=== PATIENT | female | born 1960 | race Asian ===

== ENCOUNTER 2022-08-07 13:12 | Inpatient (IN) | payer MEDICARE ==
[~2022-08-07] VITALS: Ht 157.5 cm; Wt 152.6 kg
[2022-08-07 14:43] LABS: Albumin 3.3 g/dL (3.4-5.0); Calcium 8.7 mg/dL (8.5-10.1); Potassium 4.9 mmol/L (3.5-5.1)
[2022-08-07 14:46] LABS: Bilirubin, Total 0.3 mg/dL (0.2-1.0); Lactic Acid w/Reflex 2.3 mmol/L (0.4-2.0); Total Protein 7.3 g/dL (6.4-8.2)
[2022-08-07 14:49] LABS: Basophils # (auto) 0 10 ^3/uL (0-0.2); Basophils % (auto) 0.6 % (0.0-2.0); Eosinophils # (auto) 0 10 ^3/uL (0-0.8); Eosinophils % (auto) 0.5 % (0.0-7.0); Hematocrit 36.1 % (36.0-46.0); Hemoglobin 11.8 g/dL (12.2-16.2); Lymphocytes # (auto) 1.8 10 ^3/uL (0.4-5.4); Lymphocytes % (auto) 22.6 % (10.0-50.0); Mean Corpuscular Hgb Conc. 32.5 g/dL (32.0-36.0); Mean Corpuscular Volume 89.1 fL (80.0-100.0); Monocytes # (auto) 0.3 10 ^3/uL (0-1.3); Monocytes % (auto) 3.9 % (0.0-12.0); Neutrophils # (auto) 5.8 10 ^3/uL (1.6-8.6); Neutrophils % (auto) 72.4 % (37.0-80.0); Red Blood Cells 4.05 10^6/uL (4.0-5.20); Red Cell Distribution Width 13.2 % (11.8-14.3)
[2022-08-07 15:07] LABS: BUN/Creatinine Ratio 21.2
[2022-08-07] MEDS ORDERED: InsuLIN REG 1unit/0.01ml Soln (100units/ml) IV ONE (17:00)
[2022-08-07] MEDS ORDERED: SODIUM CHLORIDE 0.9% 1,000 ML IV ONE (17:00)
[2022-08-07] MEDS ORDERED: DEXTROSE (50%) 50ML SYRG IV PRN (22:45)
[2022-08-07] MEDS ORDERED: ACETAMINOPHEN 325 MG TAB PO PRN (22:45)
[2022-08-07] MEDS ORDERED: HYDROcodone-ACET 5/325MG TAB PO PRN (22:45)
[2022-08-07] MEDS ORDERED: MORPHINE SULFATE INJ 2 MG/ml SYRG IV PRN ×2 (22:45→23:45)
[2022-08-07] MEDS: SODIUM CHLORIDE 0.9% 1,000 ML IV SCH (22:45)
[2022-08-07] MEDS ORDERED: ONDANSETRON HCL 4 MG/2 ML VIAL IV PRN (22:45)
[2022-08-07] MEDS ORDERED: ALBUMIN 25% 100 ML IV ONE (22:45)
[2022-08-07] MEDS ORDERED: NITROGLYCERIN 0.4 MG SL TAB SL PRN (23:45)
[2022-08-08] VITALS (7 sets, daily range): BP systolic 113–165; BP diastolic 67–87
[2022-08-08] MEDS: LACTULOSE 20Gm/30ML SOLN PO SCH ×4 (04:31→17:46)
[2022-08-08] MEDS: InsuLIN REG 1unit/0.01ml Soln (100units/ml) SC SCH ×4 (04:40→17:49)
[2022-08-08] MEDS: SODIUM CHLORIDE 0.9% 1,000 ML IV SCH ×2 (04:41→17:46)
[2022-08-08] MEDS: ACCU-CHEK COMFORT CURVE STRIP VI SCH ×4 (06:00→17:46)
[2022-08-08 06:44] LABS: Basophils # (auto) 0 10 ^3/uL (0-0.2); Basophils % (auto) 0.4 % (0.0-2.0); Eosinophils # (auto) 0.1 10 ^3/uL (0-0.8); Hemoglobin 10.8 g/dL (12.2-16.2); Lymphocytes # (auto) 2.7 10 ^3/uL (0.4-5.4); Lymphocytes % (auto) 39.5 % (10.0-50.0); Mean Corpuscular Hemoglobin 29.5 pg (28.0-32.0); Mean Corpuscular Hgb Conc. 33.9 g/dL (32.0-36.0); Monocytes # (auto) 0.4 10 ^3/uL (0-1.3); Monocytes % (auto) 5.2 % (0.0-12.0); Neutrophils # (auto) 3.7 10 ^3/uL (1.6-8.6); Neutrophils % (auto) 52.9 % (37.0-80.0); Nucleated Red Blood Cells % 0.1 %; Red Blood Cells 3.67 10^6/uL (4.0-5.20); Red Cell Distribution Width 13.2 % (11.8-14.3); White Blood Cell 6.9 10^3/uL (4.4-10.8)
[2022-08-08] MEDS: INSULIN LANTUS (GLARGINE) 1 /0.01ml (100units/ml) SC SCH ×2 (07:17→23:00)
[2022-08-08 07:42] LABS: Albumin 3.9 g/dL (3.4-5.0); Potassium 3.6 mmol/L (3.5-5.1)
[2022-08-08 07:47] LABS: BUN/Creatinine Ratio 21.4; Bilirubin, Total 0.7 mg/dL (0.2-1.0); Total Protein 7.4 g/dL (6.4-8.2)
[2022-08-08] MEDS: ASPirin 81 mg TAB PO SCH (09:26)
[2022-08-08] MEDS: FAMOTIDINE (10MG/ML) 2ML VL IV SCH ×2 (09:26→22:44)
[2022-08-08] MEDS ORDERED: GABA-339 PO (09:46)
[2022-08-08] MEDS ORDERED: LOSA100T25 PO (09:46)
[2022-08-08] MEDS ORDERED: BRIM0.2S17 OP (09:46)
[2022-08-08] MEDS ORDERED: DULO60CA PO (09:46)
[2022-08-08] MEDS ORDERED: INSUINJ37 SC (09:46)
[2022-08-08] MEDS ORDERED: LATA0.0020 EACHEYE (09:46)
[2022-08-08] MEDS ORDERED: KETO0.5S EACHEYE (09:46)
[2022-08-08] MEDS ORDERED: DORZ2SOL26 EACHEYE (09:46)
[2022-08-08] MEDS: AMOXICILLIN/CLAVULAN 500 MG TAB PO SCH ×2 (15:19→22:45)
[2022-08-08] MEDS ORDERED: LORazepam 2MG/ML-1ML VIAL IV PRN (17:45)
[2022-08-09] VITALS (7 sets, daily range): BP systolic 134–151; BP diastolic 63–94
[2022-08-09] MEDS: ACCU-CHEK COMFORT CURVE STRIP VI SCH ×4 (00:08→17:34)
[2022-08-09] MEDS: InsuLIN REG 1unit/0.01ml Soln (100units/ml) SC SCH ×4 (00:10→17:24)
[2022-08-09] MEDS: LACTULOSE 20Gm/30ML SOLN PO SCH ×5 (00:12→17:34)
[2022-08-09 00:54] LABS: Urine Bacteria NONE SEEN /hpf (None Seen); Urine Blood Negative /uL (Negative); Urine Specific Gravity 1.012 (1.001-1.035); Urine WBC <1 /hpf (0 - 5)
[2022-08-09 01:17] LABS: Protein, Urine 41.4 mg/dL (0.0-11.9)
[2022-08-09] MEDS: INSULIN LANTUS (GLARGINE) 1 /0.01ml (100units/ml) SC SCH ×2 (06:38→21:54)
[2022-08-09] MEDS: SODIUM CHLORIDE 0.9% 1,000 ML IV SCH (08:48)
[2022-08-09] MEDS: FAMOTIDINE (10MG/ML) 2ML VL IV SCH ×2 (08:48→21:47)
[2022-08-09] MEDS: ASPirin 81 mg TAB PO SCH (08:48)
[2022-08-09] MEDS: AMOXICILLIN/CLAVULAN 500 MG TAB PO SCH ×2 (09:22→22:00)
[2022-08-09 10:50] LABS: Cholesterol 212 mg/dL (< 200); LDL Cholesterol 142 mg/dL (< 100); Triglycerides 266 mg/dL (< 150)
[2022-08-09 10:54] LABS: HDL Cholesterol 37 mg/dL (40-59)
[2022-08-09] MEDS: ATORVASTATIN 20 MG TAB PO SCH (21:48)
[2022-08-10] VITALS (7 sets, daily range): BP systolic 123–161; BP diastolic 70–92
[2022-08-10] MEDS: InsuLIN REG 1unit/0.01ml Soln (100units/ml) SC SCH ×4 (04:17→17:25)
[2022-08-10] MEDS: ACCU-CHEK COMFORT CURVE STRIP VI SCH ×4 (04:17→17:26)
[2022-08-10] MEDS: LACTULOSE 20Gm/30ML SOLN PO SCH ×4 (05:49→17:19)
[2022-08-10] MEDS: INSULIN LANTUS (GLARGINE) 1 /0.01ml (100units/ml) SC SCH ×2 (06:17→21:41)
[2022-08-10 07:33] LABS: BUN/Creatinine Ratio 16.3; Calcium 9.1 mg/dL (8.5-10.1); Potassium 3.7 mmol/L (3.5-5.1)
[2022-08-10] MEDS: FAMOTIDINE (10MG/ML) 2ML VL IV SCH ×2 (09:00→21:34)
[2022-08-10] MEDS: ASPirin 81 mg TAB PO SCH (09:00)
[2022-08-10] MEDS ORDERED: PNEUMOCOCCAL VACC POLYS 25 MCG/0.5 ML VIAL IM ONE (09:30)
[2022-08-10] MEDS: AMOXICILLIN/CLAVULAN 500 MG TAB PO SCH ×2 (09:38→22:00)
[2022-08-10] MEDS ORDERED: SODIUM CHLORIDE 0.9% 1,000 ML IV ONE (12:30)
[2022-08-10] MEDS: ATORVASTATIN 20 MG TAB PO SCH (21:34)
[2022-08-11] MEDS: InsuLIN REG 1unit/0.01ml Soln (100units/ml) SC SCH ×5 (00:55→23:09)
[2022-08-11 05:00] VITALS: BP 162/88
[2022-08-11] MEDS: LACTULOSE 20Gm/30ML SOLN PO SCH ×3 (05:31→12:22)
[2022-08-11] MEDS: ACCU-CHEK COMFORT CURVE STRIP VI SCH ×5 (06:30→23:09)
[2022-08-11] MEDS: INSULIN LANTUS (GLARGINE) 1 /0.01ml (100units/ml) SC SCH ×2 (06:31→23:08)
[2022-08-11 09:00] VITALS: BP 121/74
[2022-08-11] MEDS: FAMOTIDINE (10MG/ML) 2ML VL IV SCH ×2 (09:28→21:37)
[2022-08-11] MEDS: ASPirin 81 mg TAB PO SCH (09:29)
[2022-08-11] MEDS: AMOXICILLIN/CLAVULAN 500 MG TAB PO SCH ×2 (09:29→21:36)
[2022-08-11 12:46] LABS: Hepatitis C Antibody Negative (Negative)
[2022-08-11 13:00] VITALS: BP 178/101
[2022-08-11] MEDS ORDERED: cloNIDine HCL 0.1 MG TAB PO PRN (14:30)
[2022-08-11 17:00] VITALS: BP 162/90
[2022-08-11] MEDS ORDERED: LOSARTAN POTASSIUM 50 MG TAB PO ONE (18:00)
[2022-08-11] MEDS ORDERED: amLODIPine BESYLATE 5 MG TAB PO ONE (18:00)
[2022-08-11] MEDS: ATORVASTATIN 20 MG TAB PO SCH (21:37)
[2022-08-11 21:48] VITALS: BP 105/63
[2022-08-12 05:00] VITALS: BP 119/61
[2022-08-12] MEDS: ACCU-CHEK COMFORT CURVE STRIP VI SCH ×2 (06:00→11:57)
[2022-08-12] MEDS: InsuLIN REG 1unit/0.01ml Soln (100units/ml) SC SCH ×2 (06:00→11:58)
[2022-08-12] MEDS: INSULIN LANTUS (GLARGINE) 1 /0.01ml (100units/ml) SC SCH (06:51)
[2022-08-12 08:05] LABS: BUN/Creatinine Ratio 16.3; Calcium 9.2 mg/dL (8.5-10.1); Potassium 3.4 mmol/L (3.5-5.1)
[2022-08-12 08:50] VITALS: BP 107/58
[2022-08-12] MEDS ORDERED: amLODIPine BESYLATE 5 MG TAB PO SCH (10:00)
[2022-08-12] MEDS ORDERED: LOSARTAN POTASSIUM 50 MG TAB PO SCH (10:00)
[2022-08-12] MEDS: AMOXICILLIN/CLAVULAN 500 MG TAB PO SCH (10:02)
[2022-08-12] MEDS: ASPirin 81 mg TAB PO SCH (10:02)
[2022-08-12] MEDS: FAMOTIDINE (10MG/ML) 2ML VL IV SCH (10:02)
[2022-08-12] MEDS ORDERED: AUG875T PO (11:52)
[2022-08-12] MEDS ORDERED: AMLO-496 PO (11:52)
[2022-08-12] MEDS ORDERED: ATO40T PO (12:02)
[2022-08-12 13:35] VITALS: BP 107/58
[2022-08-12 13:40] VITALS: BP 111/61
== END 2022-08-12 16:20 | disposition home or self-care (01) | DRG 638 ==
LOC: ER 13:12 → TELE 23:41 → TELE-WESTW 08-08 08:15
PROVIDERS: ADMIT Nurse Practitioner Family; ATTEND Family Medicine
DX: E11.10 Type 2 diabetes mellitus with ketoacidosis without coma (principal); E72.20 Disorder of urea cycle metabolism, unspecified; E87.1 Hypo-osmolality and hyponatremia; N17.9 Acute kidney failure, unspecified; N18.4 Chronic kidney disease, stage 4 (severe); E11.40 Type 2 diabetes mellitus with diabetic neuropathy, unspecified; I12.9 Hypertensive chronic kidney disease with stage 1 through stage 4 chronic kidney disease, or unspecified chronic kidney disease; E11.22 Type 2 diabetes mellitus with diabetic chronic kidney disease; R55 Syncope and collapse; E11.42 Type 2 diabetes mellitus with diabetic polyneuropathy; Z20.822 Contact with and (suspected) exposure to COVID-19; F32.A Depression, unspecified; L73.9 Follicular disorder, unspecified; E78.5 Hyperlipidemia, unspecified; E88.09 Other disorders of plasma-protein metabolism, not elsewhere classified; I45.10 Unspecified right bundle-branch block; Z80.0 Family history of malignant neoplasm of digestive organs; Z83.3 Family history of diabetes mellitus; Z90.710 Acquired absence of both cervix and uterus; Z91.199 Patient's noncompliance with other medical treatment and regimen due to unspecified reason; Z79.899 Other long term (current) drug therapy
CPT/HCPCS: 36415; 70450; 70551; 71045; 76775; 80048; 80053; 80061; 81001; 82140; 82570; 82962; 83036; 83605; 83690; 83880; 84156; 84484; 85025; 85379; 86803; 87340; 87426; 93005; 93306; 93886; 95819; 96361; 96365; 96375; 97110; 97116; 97163; 97530; G0378; J1815; J3490; P9047

== ENCOUNTER 2022-09-02 15:46 | Inpatient (IN) | payer MEDICARE ==
[~2022-09-02] VITALS: Ht 157.5 cm; Wt 69.5 kg
[~2022-09-02 15:46] MED LIST: AMLO-496 PO; ATO40T PO; AUG875T PO; BRIM0.2S17 OP; DORZ2SOL26 EACHEYE; DULO60CA PO; GABA-339 PO; INSUINJ37 SC; KETO0.5S EACHEYE; LATA0.0020 EACHEYE; LOSA100T25 PO
[2022-09-02 16:50] LABS: Urine Bacteria NONE SEEN /hpf (None Seen); Urine Blood Negative /uL (Negative); Urine Specific Gravity 1.022 (1.001-1.035); Urine WBC 1 /hpf (0 - 5)
[2022-09-02 18:54] LABS: Basophils # (auto) 0 10 ^3/uL (0-0.2); Basophils % (auto) 0.3 % (0.0-2.0); Eosinophils # (auto) 0.1 10 ^3/uL (0-0.8); Hematocrit 39.7 % (36.0-46.0); Hemoglobin 12.9 g/dL (12.2-16.2); Lymphocytes # (auto) 2.7 10 ^3/uL (0.4-5.4); Lymphocytes % (auto) 36.3 % (10.0-50.0); Mean Corpuscular Hemoglobin 28.3 pg (28.0-32.0); Mean Corpuscular Hgb Conc. 32.4 g/dL (32.0-36.0); Mean Corpuscular Volume 87.3 fL (80.0-100.0); Monocytes # (auto) 0.4 10 ^3/uL (0-1.3); Monocytes % (auto) 5.9 % (0.0-12.0); Neutrophils # (auto) 4.1 10 ^3/uL (1.6-8.6); Neutrophils % (auto) 56.5 % (37.0-80.0); Nucleated Red Blood Cells % 0.1 %; Red Blood Cells 4.55 10^6/uL (4.0-5.20); Red Cell Distribution Width 13.1 % (11.8-14.3); White Blood Cell 7.3 10^3/uL (4.4-10.8)
[2022-09-02 19:11] LABS: Albumin 3.5 g/dL (3.4-5.0); Calcium 9.4 mg/dL (8.5-10.1)
[2022-09-02 19:13] LABS: Bilirubin, Total 0.4 mg/dL (0.2-1.0); Total Protein 8.5 g/dL (6.4-8.2)
[2022-09-02 19:18] LABS: Lactic Acid w/Reflex 3.6 mmol/L (0.4-2.0)
[2022-09-02] MEDS ORDERED: InsuLIN REG 1unit/0.01ml Soln (100units/ml) IV ONE (20:30)
[2022-09-02] MEDS ORDERED: SODIUM CHLORIDE 0.9% 1,000 ML IV ONE ×2 (20:30→23:00)
[2022-09-03] MEDS ORDERED: MORPHINE SULFATE INJ 2 MG/ml SYRG IV PRN (00:15)
[2022-09-03] MEDS ORDERED: NITROGLYCERIN 0.4 MG SL TAB SL PRN (00:15)
[2022-09-03] MEDS ORDERED: ACETAMINOPHEN 325 MG TAB PO PRN (00:15)
[2022-09-03] MEDS ORDERED: DEXTROSE (50%) 50ML SYRG IV PRN ×2 (00:15→14:00)
[2022-09-03] MEDS ORDERED: ONDANSETRON HCL 4 MG/2 ML VIAL IV PRN (00:15)
[2022-09-03] MEDS: ACCU-CHEK COMFORT CURVE STRIP VI SCH ×3 (05:48→17:30)
[2022-09-03] MEDS: InsuLIN REG 1unit/0.01ml Soln (100units/ml) SC SCH ×3 (05:55→17:30)
[2022-09-03 09:54] LABS: Magnesium 2.2 mg/dL (1.6-2.6)
[2022-09-03] MEDS ORDERED: LOSARTAN POTASSIUM 25 MG TAB PO SCH (10:00)
[2022-09-03] MEDS: PANTOPRAZOLE 40 MG TAB PO SCH (10:06)
[2022-09-03] MEDS: GABAPENTIN 300 MG CAP PO SCH ×2 (10:06→21:36)
[2022-09-03] MEDS: amLODIPine BESYLATE 5 MG TAB PO SCH (10:07)
[2022-09-03] MEDS ORDERED: hydrALAZINE HCL 20 MG/ML VL IV PRN (10:30)
[2022-09-03] MEDS ORDERED: ASPirin 81 mg TAB PO ONE (10:45)
[2022-09-03 10:56] LABS: BUN/Creatinine Ratio 11.9 (10.0-20.0); Calcium 8.8 mg/dL (8.5-10.1); Potassium 3.5 mmol/L (3.5-5.1)
[2022-09-03 16:46] VITALS: BP 117/69
[2022-09-03] MEDS ORDERED: INSLANTI SC (17:03)
[2022-09-03] MEDS ORDERED: INSLISPI SC (17:03)
[2022-09-03] MEDS ORDERED: ASPI-378 PO (17:04)
[2022-09-03] MEDS ORDERED: FIBE1CHW PO (17:04)
[2022-09-03 20:00] VITALS: BP 118/62
[2022-09-03 22:00] VITALS: BP 118/62
[2022-09-03] MEDS ORDERED: ATORVASTATIN 20 MG TAB PO SCH (22:00)
[2022-09-03] MEDS ORDERED: INSULIN LANTUS (GLARGINE) 1 /0.01ml (100units/ml) SC SCH (22:00)
[2022-09-04] MEDS: ACCU-CHEK COMFORT CURVE STRIP VI SCH ×3 (00:39→12:00)
[2022-09-04 05:00] VITALS: BP 123/72
[2022-09-04] MEDS: InsuLIN REG 1unit/0.01ml Soln (100units/ml) SC SCH ×3 (05:25→12:00)
[2022-09-04 06:58] LABS: Basophils # (auto) 0.1 10 ^3/uL (0-0.2); Basophils % (auto) 0.8 % (0.0-2.0); Eosinophils # (auto) 0.1 10 ^3/uL (0-0.8); Eosinophils % (auto) 1.6 % (0.0-7.0); Hemoglobin 11.4 g/dL (12.2-16.2); Lymphocytes # (auto) 3.3 10 ^3/uL (0.4-5.4); Lymphocytes % (auto) 48.1 % (10.0-50.0); Mean Corpuscular Hemoglobin 28.7 pg (28.0-32.0); Mean Corpuscular Hgb Conc. 34.5 g/dL (32.0-36.0); Mean Corpuscular Volume 83.2 fL (80.0-100.0); Monocytes # (auto) 0.4 10 ^3/uL (0-1.3); Monocytes % (auto) 6.1 % (0.0-12.0); Neutrophils % (auto) 43.4 % (37.0-80.0); Nucleated Red Blood Cells % 0.2 %; Red Blood Cells 3.97 10^6/uL (4.0-5.20); Red Cell Distribution Width 13.3 % (11.8-14.3); White Blood Cell 6.9 10^3/uL (4.4-10.8)
[2022-09-04 07:12] LABS: Albumin 2.9 g/dL (3.4-5.0); Calcium 8.9 mg/dL (8.5-10.1); Potassium 3.6 mmol/L (3.5-5.1)
[2022-09-04 07:16] LABS: BUN/Creatinine Ratio 12.1 (10.0-20.0); Bilirubin, Total 0.3 mg/dL (0.2-1.0); Total Protein 6.6 g/dL (6.4-8.2)
[2022-09-04 08:00] VITALS: BP 95/57
[2022-09-04 08:52] VITALS: BP_SYST 127; BP_SYST 95; BP_DIAS 57
[2022-09-04 08:57] VITALS: BP 101/57
[2022-09-04 08:58] VITALS: BP 64/31
[2022-09-04 09:56] VITALS: BP 141/76
[2022-09-04] MEDS ORDERED: ASPirin 81 mg TAB PO SCH (10:00)
[2022-09-04] MEDS: GABAPENTIN 300 MG CAP PO SCH (10:23)
[2022-09-04] MEDS: PANTOPRAZOLE 40 MG TAB PO SCH (10:23)
[2022-09-04] MEDS: amLODIPine BESYLATE 5 MG TAB PO SCH (10:24)
== END 2022-09-04 13:54 | disposition home or self-care (01) | DRG 638 ==
LOC: ER 15:46 → TELE 09-03 00:10 → TELE-WESTW 09-03 15:13 → TELE 09-03 15:17 → TELE-WESTW 09-03 15:40
PROVIDERS: ADMIT Nurse Practitioner; ATTEND Family Medicine
DX: E11.10 Type 2 diabetes mellitus with ketoacidosis without coma (principal); N17.9 Acute kidney failure, unspecified; N18.4 Chronic kidney disease, stage 4 (severe); E86.0 Dehydration; R55 Syncope and collapse; I12.9 Hypertensive chronic kidney disease with stage 1 through stage 4 chronic kidney disease, or unspecified chronic kidney disease; E11.22 Type 2 diabetes mellitus with diabetic chronic kidney disease; E78.5 Hyperlipidemia, unspecified; Z80.0 Family history of malignant neoplasm of digestive organs; Z20.822 Contact with and (suspected) exposure to COVID-19; Z91.14 Patient's other noncompliance with medication regimen; Z83.3 Family history of diabetes mellitus
CPT/HCPCS: 36415; 70450; 71045; 72125; 80048; 80053; 80061; 81001; 82140; 82962; 83605; 83690; 83735; 84443; 84484; 85025; 87081; 87426; 93005; 93886; 96361; 96372; 96374; G0378; J1815

== ENCOUNTER 2023-04-16 00:27 | Inpatient (IN) | payer MEDICARE, OTHER ==
[~2023-04-16] VITALS: Ht 162.6 cm; Wt 90.7 kg
[~2023-04-16 00:27] MED LIST changes: -AMLO-496 PO; +AMLO1TAB23 PO; +ASPI-378 PO; -AUG875T PO; -DULO60CA PO; +DULO60CA41 PO; +FIBE1CHW PO; +INSLANTI SC; +INSLISPI SC; -INSUINJ37 SC
[2023-04-16] MEDS ORDERED: InsuLIN REG 1unit/0.01ml Soln (100units/ml) IV ONE ×2 (01:00→05:30)
[2023-04-16] MEDS ORDERED: SODIUM CHLORIDE 0.9% 2,000 ML IV ONE (01:00)
[2023-04-16] MEDS ORDERED: LORazepam 2MG/ML-1ML VIAL IV ONE (01:00)
[2023-04-16 01:22] LABS: Basophils # (auto) 0 10 ^3/uL (0-0.2); Basophils % (auto) 0.3 % (0.0-2.0); Eosinophils # (auto) 0 10 ^3/uL (0-0.8); Eosinophils % (auto) 0.2 % (0.0-7.0); Lymphocytes # (auto) 2.2 10 ^3/uL (0.4-5.4); Lymphocytes % (auto) 13.7 % (10.0-50.0); Mean Corpuscular Hemoglobin 27.8 pg (28.0-32.0); Mean Corpuscular Hgb Conc. 32.6 g/dL (32.0-36.0); Mean Corpuscular Volume 85.2 fL (80.0-100.0); Monocytes # (auto) 0.3 10 ^3/uL (0-1.3); Monocytes % (auto) 2.1 % (0.0-12.0); Neutrophils # (auto) 13.5 10 ^3/uL (1.6-8.6); Neutrophils % (auto) 83.7 % (37.0-80.0); Red Blood Cells 4.69 10^6/uL (4.0-5.20); Red Cell Distribution Width 14.5 % (11.8-14.3); White Blood Cell 16.1 10^3/uL (4.4-10.8)
[2023-04-16 01:40] LABS: INR 0.98 (0.9-1.15); Partial Thromboplastin Time 26.7 SEC (24.5-34.5); Prothrombin Time 10.3 sec (9.3-11.8)
[2023-04-16 01:45] LABS: Alanine Aminotransferase 19 U/L (7-40); Albumin 4.3 g/dL (3.2-4.8); Alkaline Phosphatase 152 U/L (46-116); Anion Gap 13 (5-15); Aspartate Aminotransferase 16 U/L (13-40); BUN/Creatinine Ratio 16.5 (10.0-20.0); Blood Alcohol 4.2 mg/dL (<10); Blood Urea Nitrogen 37 mg/dL (9-23); Calcium 9.1 mg/dL (8.7-10.4); Carbon Dioxide 22 mmol/L (20-30); Chloride 95 mmol/L (98-107); Lactic Acid w/Reflex 3.3 mmol/L (0.4-2.0); Sodium 130 mmol/L (136-145)
[2023-04-16 01:46] LABS: Bilirubin, Total 0.6 mg/dL (0.2-1.0)
[2023-04-16] MEDS ORDERED: PIPERACILLIN-TAZOB 3.375GM 100 ML IV ONE (02:00)
[2023-04-16] MEDS ORDERED: VANCOMYCIN 1GM/250ML 250 ML IV ONE (02:00)
[2023-04-16 02:11] LABS: Glucose 792 mg/dL (74-106)
[2023-04-16] MEDS ORDERED: diphenhdrAMINE HCL 50 MG/1 ML VL ONE (02:26)
[2023-04-16] MEDS ORDERED: HALOPERIDOL LACTATE 5 MG/ML INJ VIAL ONE (02:26)
[2023-04-16] MEDS ORDERED: LACTATED RINGER'S 2,000 ML IV ONE (02:30)
[2023-04-16 02:40] VITALS: PULSE 116; RESP 22; O2SAT 95
[2023-04-16 04:44] LABS: Urine Bacteria NONE SEEN /hpf (None Seen); Urine Blood 1+ /uL (Negative); Urine Clarity Clear (Clear); Urine Color Colorless (Yellow); Urine Protein, UAD 2+ (Negative); Urine Specific Gravity 1.019 (1.001-1.035); Urine Urobilinogen Normal (Negative); Urine WBC 17 /hpf (0 - 5); Urine WBC Clumps PRESENT /hpf (None Seen)
[2023-04-16 04:50] LABS: Amphetamine Screen, Urine Neg (NEGATIVE); Barbiturate Scree,Urine Neg (NEGATIVE); Benzodiazephine Screen, Urine Neg (NEGATIVE); Cannabinoid Screen, Urine Neg (NEGATIVE); Cocaine Screen, Urine Neg (NEGATIVE); Opiate Scree,Urine Neg (NEGATIVE); Phencyclidine Screen, Urine Neg (NEGATIVE)
[2023-04-16] MEDS ORDERED: hydrALAZINE HCL 20 MG/ML VL IV ONE (05:30)
[2023-04-16] MEDS ORDERED: ACETAMINOPHEN 325 MG TAB PO PRN (07:45)
[2023-04-16] MEDS ORDERED: NITROGLYCERIN 0.4 MG SL TAB SL PRN (07:45)
[2023-04-16] MEDS ORDERED: SODIUM CHLORIDE 0.9% 1,000 ML IV SCH (07:45)
[2023-04-16] MEDS ORDERED: ONDANSETRON HCL 4 MG/2 ML VIAL IV PRN (07:45)
[2023-04-16] MEDS ORDERED: DEXTROSE (50%) 50ML SYRG IV PRN (07:45)
[2023-04-16] MEDS ORDERED: MORPHINE SULFATE INJ 2 MG/ml SYRG IV PRN (07:45)
[2023-04-16 08:00] VITALS: PULSE 91; RESP 19; O2SAT 100
[2023-04-16] MEDS: cefTRIAXone 1GM/50ML D5W 50 ML IV SCH (09:25)
[2023-04-16] MEDS: ACCU-CHEK COMFORT CURVE STRIP VI SCH ×5 (09:26→23:22)
[2023-04-16] MEDS: InsuLIN REG 1unit/0.01ml Soln (100units/ml) SC SCH ×5 (09:28→23:22)
[2023-04-16] MEDS: amLODIPine BESYLATE 5 MG TAB PO SCH (10:00)
[2023-04-16] MEDS: SODIUM CHLORIDE 0.9% 1,000 ML IV SCH ×2 (15:32→17:55)
[2023-04-16 19:30] VITALS: PULSE 97; RESP 15; O2SAT 97
[2023-04-16 22:35] VITALS: PULSE 95; RESP 16; O2SAT 95
[2023-04-16 22:39] VITALS: BP 177/78; PULSE 95; RESP 16; TEMP 98.8; O2SAT 95
[2023-04-16 22:54] LABS: Alanine Aminotransferase 11 U/L (7-40); Albumin 3.5 g/dL (3.2-4.8); Alkaline Phosphatase 99 U/L (46-116); Anion Gap 8 (5-15); Aspartate Aminotransferase 14 U/L (13-40); BUN/Creatinine Ratio 15.6 (10.0-20.0); Bilirubin, Total 0.3 mg/dL (0.2-1.0); Blood Urea Nitrogen 35 mg/dL (9-23); Calcium 8.7 mg/dL (8.5-10.1); Carbon Dioxide 25 mmol/L (20-30); Chloride 109 mmol/L (98-107); Glucose 249 mg/dL (74-106); Potassium 3.2 mmol/L (3.5-5.1); Sodium 142 mmol/L (136-145); Total Protein 6.4 g/dL (5.7-8.2)
[2023-04-16] MEDS: LABETALOL HCL 5 MG/ML 4ML SYRINGE IV PRN (23:03)
[2023-04-16] MEDS: INSULIN LANTUS (GLARGINE) 1 /0.01ml (100units/ml) SC SCH (23:21)
[2023-04-17] VITALS (7 sets, daily range): BP systolic 137–155; BP diastolic 64–93; PULSE 84–100; RESP 16–17; TEMP 97.7–98.8; O2SAT 94–100
[2023-04-17] MEDS: InsuLIN REG 1unit/0.01ml Soln (100units/ml) SC SCH ×5 (04:28→20:13)
[2023-04-17] MEDS: SODIUM CHLORIDE 0.9% 1,000 ML IV SCH ×4 (04:31→20:17)
[2023-04-17] MEDS: ACCU-CHEK COMFORT CURVE STRIP VI SCH ×5 (04:32→20:08)
[2023-04-17 07:36] LABS: Eosinophils # (auto) 0 10 ^3/uL (0-0.8); Eosinophils % (auto) 0.4 % (0.0-7.0); Lymphocytes % (auto) 22.3 % (10.0-50.0)
[2023-04-17 07:39] LABS: Alanine Aminotransferase 11 U/L (7-40); Albumin 3.5 g/dL (3.2-4.8); Alkaline Phosphatase 107 U/L (46-116); Anion Gap 9 (5-15); Aspartate Aminotransferase 12 U/L (13-40); BUN/Creatinine Ratio 12.4 (10.0-20.0); Blood Urea Nitrogen 29 mg/dL (9-23); Calcium 8.9 mg/dL (8.7-10.4); Carbon Dioxide 25 mmol/L (20-30); Chloride 110 mmol/L (98-107); Glucose 120 mg/dL (74-106); Sodium 144 mmol/L (136-145)
[2023-04-17 07:40] LABS: Basophils # (auto) 0.1 10 ^3/uL (0-0.2); Basophils % (auto) 0.5 % (0.0-2.0); Bilirubin, Total 0.4 mg/dL (0.2-1.0); Hematocrit 36.9 % (36.0-46.0); Hemoglobin 11.9 g/dL (12.2-16.2); Lymphocytes # (auto) 2.7 10 ^3/uL (0.4-5.4); Mean Corpuscular Hemoglobin 27.3 pg (28.0-32.0); Mean Corpuscular Hgb Conc. 32.1 g/dL (32.0-36.0); Mean Corpuscular Volume 85.1 fL (80.0-100.0); Monocytes # (auto) 0.9 10 ^3/uL (0-1.3); Monocytes % (auto) 7.3 % (0.0-12.0); Neutrophils # (auto) 8.2 10 ^3/uL (1.6-8.6); Neutrophils % (auto) 69.5 % (37.0-80.0); Nucleated Red Blood Cells % 0.1 %; Red Blood Cells 4.33 10^6/uL (4.0-5.20); Red Cell Distribution Width 15.2 % (11.8-14.3); Total Protein 6.4 g/dL (5.7-8.2); White Blood Cell 11.9 10^3/uL (4.4-10.8)
[2023-04-17 08:10] LABS: Potassium 2.9 mmol/L (3.5-5.1)
[2023-04-17] MEDS: cefTRIAXone 1GM/50ML D5W 50 ML IV SCH (08:41)
[2023-04-17] MEDS: amLODIPine BESYLATE 5 MG TAB PO SCH (08:42)
[2023-04-17] MEDS ORDERED: POTASSIUM CHL 20 Meq TABLET PO ONE (09:00)
[2023-04-17] MEDS: INSULIN LANTUS (GLARGINE) 1 /0.01ml (100units/ml) SC SCH (22:33)
[2023-04-18] MEDS: ACCU-CHEK COMFORT CURVE STRIP VI SCH ×4 (00:24→12:16)
[2023-04-18] MEDS: InsuLIN REG 1unit/0.01ml Soln (100units/ml) SC SCH ×4 (00:24→12:16)
[2023-04-18] MEDS: LABETALOL HCL 5 MG/ML 4ML SYRINGE IV PRN (02:09)
[2023-04-18] MEDS: SODIUM CHLORIDE 0.9% 1,000 ML IV SCH ×2 (03:15→09:11)
[2023-04-18] MEDS ORDERED: hydrALAZINE HCL 20 MG/ML VL IV PRN (04:30)
[2023-04-18 04:47] VITALS: BP 168/89; PULSE 84; RESP 16; TEMP 98.6; O2SAT 97
[2023-04-18 08:00] VITALS: PULSE 82; PULSE 89; O2SAT 94
[2023-04-18] MEDS ORDERED: CIPR-173 PO (08:34)
[2023-04-18 09:00] VITALS: BP 133/76; PULSE 89; RESP 16; TEMP 98.2; O2SAT 97
[2023-04-18] MEDS: cefTRIAXone 1GM/50ML D5W 50 ML IV SCH (09:05)
[2023-04-18] MEDS: amLODIPine BESYLATE 5 MG TAB PO SCH (09:06)
[2023-04-18 11:00] VITALS: BP 133/76; PULSE 89; RESP 16; TEMP 98.2; O2SAT 97
== END 2023-04-18 12:16 | disposition home or self-care (01) | DRG 871 ==
LOC: ER 00:27 → EDBD 00:27 → TELE 07:31 → TELE-CENTR 07:36
PROVIDERS: ADMIT Nurse Practitioner; ATTEND Family Medicine
DX: A41.9 Sepsis, unspecified organism (principal); E11.10 Type 2 diabetes mellitus with ketoacidosis without coma; G92.8 Other toxic encephalopathy; N13.6 Pyonephrosis; E11.22 Type 2 diabetes mellitus with diabetic chronic kidney disease; E78.5 Hyperlipidemia, unspecified; E86.0 Dehydration; F32.A Depression, unspecified; I12.9 Hypertensive chronic kidney disease with stage 1 through stage 4 chronic kidney disease, or unspecified chronic kidney disease; I16.0 Hypertensive urgency; N18.9 Chronic kidney disease, unspecified; Z91.199 Patient's noncompliance with other medical treatment and regimen due to unspecified reason
CPT/HCPCS: 36415; 36600; 70450; 71045; 71250; 74176; 80053; 80307; 80320; 81001; 82805; 82962; 83605; 83735; 84484; 85025; 85610; 85730; 86850; 86900; 86901; 87040; 87081; 87086; 87088; 87186; 99291; G0378; J0696; J1815; J2543; J3490

== ENCOUNTER 2023-09-05 11:45 | Emergency (ER) | payer MEDICARE, OTHER ==
[~2023-09-05] VITALS: Ht 157.5 cm; Wt 72.1 kg
[~2023-09-05 11:45] MED LIST changes: -ATO40T PO; +ATOR-507 PO; +CIPR-173 PO
[2023-09-05 14:23] VITALS: TEMP 98.3
[2023-09-05] MEDS: SODIUM CHLORIDE 0.9% 1,000 ML IV ONE (14:43)
[2023-09-05] MEDS: cefTRIAXone 1GM/50ML D5W 50 ML IV ONE (14:54)
[2023-09-05 15:30] LABS: Basophils # (auto) 0.1 10 ^3/uL (0-0.2); Basophils % (auto) 0.5 % (0.0-2.0); Eosinophils # (auto) 0.1 10 ^3/uL (0-0.8); Eosinophils % (auto) 1.1 % (0.0-7.0); Hematocrit 27.1 % (36.0-46.0); Hemoglobin 8.9 g/dL (12.2-16.2); Lymphocytes # (auto) 2.8 10 ^3/uL (0.4-5.4); Lymphocytes % (auto) 23.4 % (10.0-50.0); Mean Corpuscular Hemoglobin 28.6 pg (28.0-32.0); Mean Corpuscular Hgb Conc. 32.8 g/dL (32.0-36.0); Mean Corpuscular Volume 87.3 fL (80.0-100.0); Monocytes # (auto) 0.7 10 ^3/uL (0-1.3); Monocytes % (auto) 6.1 % (0.0-12.0); Neutrophils # (auto) 8.2 10 ^3/uL (1.6-8.6); Neutrophils % (auto) 68.9 % (37.0-80.0); Red Cell Distribution Width 14.7 % (11.8-14.3)
[2023-09-05 15:44] LABS: Alkaline Phosphatase 127 U/L (46-116); Anion Gap 4 (5-15); Aspartate Aminotransferase 12 U/L (13-40); BUN/Creatinine Ratio 6.8 (10.0-20.0); Blood Urea Nitrogen 19 mg/dL (9-23); Calcium 8.8 mg/dL (8.7-10.4); Carbon Dioxide 26 mmol/L (20-30); Chloride 110 mmol/L (98-107); Glucose 175 mg/dL (74-106); Magnesium 1.7 mg/dL (1.6-2.6); Potassium 3.9 mmol/L (3.5-5.1); Sodium 140 mmol/L (136-145)
[2023-09-05 15:45] LABS: Albumin 3.6 g/dL (3.2-4.8); Bilirubin, Total 0.3 mg/dL (0.2-1.0); Total Protein 6.5 g/dL (5.7-8.2)
[2023-09-05 15:51] LABS: Alanine Aminotransferase < 9 U/L (7-40)
[2023-09-05] MEDS ORDERED: CEFD300C2 PO (16:48)
[2023-09-05] MEDS ORDERED: BACI1OIN45 EX (16:48)
[2023-09-05 17:18] VITALS: BP 142/79; PULSE 87; RESP 18; O2SAT 96
[2023-09-05] MEDS ORDERED: OLME40TA76 PO (17:23)
== END 2023-09-05 17:23 | disposition home or self-care (01) ==
LOC: ER 11:45
DX: R60.1 Generalized edema (principal); E10.65 Type 1 diabetes mellitus with hyperglycemia; E10.22 Type 1 diabetes mellitus with diabetic chronic kidney disease; I12.9 Hypertensive chronic kidney disease with stage 1 through stage 4 chronic kidney disease, or unspecified chronic kidney disease; N18.4 Chronic kidney disease, stage 4 (severe); D63.1 Anemia in chronic kidney disease; L02.811 Cutaneous abscess of head [any part, except face]
CPT/HCPCS: 36415; 71046; 80053; 83735; 83880; 84484; 85025; 93005; 96365; 99285; J0696